=== PATIENT | female | born 1945 | race Caucasian/White ===

== ENCOUNTER 2020-03-07 14:55 | Inpatient (IN) | payer OTHER ==
[~2020-03-07] VITALS: Ht 152.4 cm; Wt 38.6 kg
--- NOTE | 2020-03-07 15:14 | NUR ---
[facility] [phone]
--- NOTE | 2020-03-07 15:14 | NUR ---
AIDAN XAVIER 83 [facility]ing personnel did not feel comfortable transporting her back home/unable to care for self/no family, patient c/o dizziness, to ER bed 9, hooked to monitor, changed to hosp gown, warm blanket provided, Dr Alegria at bedside.
[2020-03-07] MEDS ORDERED: MECLIZINE HCL 25 MG TABLET ONE (15:21)
[2020-03-07] MEDS ORDERED: ONDANSETRON HCL/PF 4 MG/2 ML VIAL ONE (15:21)
[2020-03-07] MEDS ORDERED: IV NS 0.9% 1,000 ML BAG IV ONE (15:30)
[2020-03-07] MEDS ORDERED: ONDANSETRON HCL/PF 4 MG/2 ML VIAL IVP ONE (15:30)
[2020-03-07] MEDS ORDERED: MECLIZINE HCL 12.5 MG TABLET PO ONE (15:30)
[2020-03-07 15:31] LABS: BASOPHILS # (AUTO) 0.1 /CMM (0.0-0.2); BASOPHILS % (AUTO) 0.8 % (0.0-2.0); EOSINOPHILS % (AUTO) 0.1 % (0.0-6.0); HEMATOCRIT 41 % (33-45); HEMOGLOBIN 13.4 g/dL (11.5-14.8); LYMPHOCYTES # (AUTO) 0.9 /CMM (0.8-4.8); LYMPHOCYTES % (AUTO) 12.3 % (20.0-44.0); MEAN CORPUSCULAR HGB CONC 33 g/dl (31.0-36.0); MEAN CORPUSCULAR VOLUME 101 fL (82-100); MONOCYTES # (AUTO) 0.6 /CMM (0.1-1.30); MONOCYTES % (AUTO) 8.3 % (2.0-12.0); NEUTROPHILS # (AUTO) 5.7 /CMM (1.8-8.9); NEUTROPHILS % (AUTO) 78.5 % (43.0-81.0); PLATELET COUNT (AUTO) 146 /CMM (150-450); RED BLOOD CELL COUNT(AUTO) 4.06 MIL/uL (4.0-5.2); WHITE BLOOD COUNT (AUTO) 7.3 K/uL (4.3-11.0)
[2020-03-07 15:42] LABS: CALCIUM, SERUM 8.4 mg/dL (8.5-10.1); CARBON DIOXIDE 30 mmol/L (21-32); CHLORIDE 86 mmol/L (98-107); GLUCOSE 100 mg/dL (74-106); POTASSIUM 3.7 mmol/L (3.5-5.1); SODIUM SERUM 131 mmol/L (136-145); UREA NITROGEN, BLOOD 17 mg/dL (7-18)
[2020-03-07 15:48] LABS: ALANINE AMINOTRANSFERASE 23 U/L (12-78); ALBUMIN 3.7 g/dL (3.4-5.0); ALKALINE PHOSPHATASE 89 U/L (46-116); ASPARTATE AMINOTRANSFERASE 55 U/L (15-37); BILIRUBIN,DIRECT 0.4 mg/dL (0.0-0.2); BILIRUBIN,TOTAL 1.4 mg/dL (0.2-1.0); TOTAL PROTEIN, SERUM 9.9 g/dL (6.4-8.2)
--- NOTE | 2020-03-07 16:25 | NUR ---
FAXED CLINICALS OVER TO [facility]
--- NOTE | 2020-03-07 17:03 | NUR ---
SPOKE WITH CHRISTINE ALEXANDRA FROM [facility]. THEY RECIEVED THE CLINICALS AND ARE ACTIVELY LOOKING FOR SNF PLACEMENT. WILL CALL BACK WITH DETAILS ONCE AVAILABLE.
--- NOTE | 2020-03-07 17:14 | NUR ---
PATIENT IN BED AWAKE, HOOKED TO MONITOR, WILL CONTINUE TO MONITOR ACCORDINGLY
--- NOTE | 2020-03-07 17:41 | NUR ---
RECIEVED A CALL BACK FROM NASRIN KING FROM [facility]. CALLED ASKING IF WE HAVE A RAPID COVID TEST AND STATED WE HAVE A 24-72 HOUR TURN AROUND. WILL SEE IF SHE CAN GET AUTHORIZATION FOR ADMISSION AT [facility]. WILL CALL BACK WITH DETAILS.
--- NOTE | 2020-03-07 18:15 | NUR ---
WAITING FOR DR FRANK TO CALL DR SMITH
--- NOTE | 2020-03-07 18:18 | NUR ---
PATIENT IN BED ASLEEP, EASILY AROUSED BY VOICE, HOOKED TO MONITOR, WILL CONTINUE TO MONITOR ACCORDINGLY
--- NOTE | 2020-03-07 18:58 | NUR ---
PATIENT IN BED ASLEEP, EASILY AROUSED BY VOICE, HOOKED TO MONITOR, WILL CONTINUE TO MONITOR ACCORDINGLY
--- NOTE | 2020-03-07 19:04 | NUR ---
JUST FAXED JUANITO ENRIQUEZ TO [facility] TO SEE IF THAT IS SUFFICIENT FOR ADMISSION OR TRANSPORT TO HOSPITAL OR SNF. WILL CALL BACK AFTER WITH RESULTS.
--- NOTE | 2020-03-07 19:16 | NUR ---
AWAITING FOR CALL, HAD DIALYSIS TODAY.
--- NOTE | 2020-03-07 19:35 | NUR ---
Patient is resting comfortably in bed. Easily aroused. VSS.
--- NOTE | 2020-03-07 20:52 | NUR ---
SPOKE WITH [employer] SOLUTIONS ENGINEER, [facility] DENIED PT. POSSIBLE AUTH TO ADMIT PT HERE. WILL FOLLOW UP
--- NOTE | 2020-03-07 21:50 | NUR ---
PER BOARD MIXER TENDER FILIBERTO, AUTH TO ADMIT PT HERE
--- NOTE | 2020-03-07 21:55 | NUR ---
DR. SMITH ON THE PHONE WITH DR. ROB
--- NOTE | 2020-03-07 22:23 | NUR ---
Patient is resting comfortably in bed. Easily aroused. VSS.
[2020-03-07] MEDS ORDERED: ACETAMINOPHEN 650 MG/20.3 ML UDC PO PRN ×2 (22:30→23:15)
[2020-03-07] MEDS ORDERED: CLONIDINE HCL 0.1 MG TABLET PO PRN ×2 (22:30→23:15)
--- NOTE | 2020-03-07 22:39 | NUR ---
BED 312-2
--- NOTE | 2020-03-07 22:58 | NUR ---
REPORT GIVEN TO [place] FOR RANCHO
--- NOTE | 2020-03-07 23:07 | NUR ---
Benjamín kohler in [facility] - 03/07/20 at 2308 by VERAOR PT TRANSFERED TO [facility].
[2020-03-07 23:30] VITALS: BP 115/66
--- NOTE | 2020-03-07 23:30 | NUR ---
ADMITTED PATIENT FROM ED DUE TO WEAKNESS, FROM HD CENTER, PATIENT ALERT AND ORIENTED X3, ROOM AIR, NO COMPLAIN OF PAIN, RCW HD CATH SECURED WITH DRESSING, ANURIC PER PT, BM X1, LEFT BUTTOCK REDNESS, PHOTO TAKEN, EMACIATED, MULTIPLE OLD SCARS ON BLE, NO EDEMA, GENERALIZED WEAKNESS, EDUCATED ON SAFETY PRECAUTIONS, ORIENTED TO ROOM AND USE OF CALL LIGHT.
--- NOTE | 2020-03-08 | NUR ---
NO ADMITTING DX YET FROM DR. ROB, NO DIET ORDER YET
[2020-03-08 00:30] VITALS: BP 115/66
[2020-03-08] MEDS ORDERED: *INSULIN REGULAR(HUMULIN R)HUM 100 UNIT/ML VIAL SQ PRN (06:30)
[2020-03-08] MEDS ORDERED: DEXTROSE 50%-WATER 50 ML DISP.SYRIN IV PRN (06:30)
[2020-03-08] MEDS: BLOOD SUGAR DIAGNOSTIC 1 EACH STRIP VI SCH ×4 (06:33→22:28)
[2020-03-08] MEDS: INSULIN REGULAR, HUMAN 100 UNIT/ML 3 ML VIAL SQ PRN ×2 (06:34→17:30)
--- NOTE | 2020-03-08 06:49 | NUR ---
RN NOTES ALERT AND AWAKE, STABLE ON ROOM AIR, NO COMPLAIN OF PAIN, DR. ROB GAVE ORDERS OF ACCUCHECK AND DX OF RENAL FAILURE, PT, OT, WOUND CONSULT, CASE MANAGEMENT CONSULT FOR PLACEMENT
[2020-03-08 08:00] VITALS: BP 97/51
[2020-03-08] MEDS ORDERED: IV NS 0.9% 250 ML IV ONE (11:30)
[2020-03-08] MEDS ORDERED: NEPRO VAN 237 ML CAN PO PRN (13:00)
[2020-03-08 16:00] VITALS: BP 96/56
--- NOTE | 2020-03-08 18:00 | NUR ---
appetite poor case mgmt. working on snf placement.
--- NOTE | 2020-03-08 20:08 | NUR ---
MS/TELE/RN PATIENT IS AWAKE, ALERT, ORIENTED, COMFORTABLE, NO C/O PAIN, NO DISTRESS NOTED, CALL LIGHT IN REACH. FALL PRECAUTIONS IN PLACE, WILL MONITOR.
[2020-03-08 20:33] VITALS: BP 93/57
--- NOTE | 2020-03-09 00:49 | NUR ---
MS/TELE/RN PATIENT IS SLEEPING AT THIS TIME, APPEAR COMFORTABLE, NO SIGNS OF DISTRESS NOTED, CALL LIGHT IN REACH, WILL CONTINUE TO MONITOR.
--- NOTE | 2020-03-09 06:24 | NUR ---
MS/TELE/RN PATIENT IS AWAKE, COMFORTABLE, NO SIGNS OF DISTRESS NOTED, ALL NEEDS ATTENDED AT THIS TIME, WILL CONTINUE TO MONITOR.
[2020-03-09] MEDS: BLOOD SUGAR DIAGNOSTIC 1 EACH STRIP VI SCH ×4 (06:38→20:54)
[2020-03-09 07:24] LABS: CALCIUM, SERUM 7.4 mg/dL (8.5-10.1); CARBON DIOXIDE 30 mmol/L (21-32); CHLORIDE 90 mmol/L (98-107); CREATININE 6.3 mg/dL (0.6-1.3); GLUCOSE 82 mg/dL (74-106); MAGNESIUM 2.1 mg/dL (1.8-2.4); SODIUM SERUM 129 mmol/L (136-145); UREA NITROGEN, BLOOD 48 mg/dL (7-18)
[2020-03-09 07:32] LABS: POTASSIUM 4.6 mmol/L (3.5-5.1)
[2020-03-09 08:00] VITALS: BP 95/61
--- NOTE | 2020-03-09 08:00 | NUR ---
MS RN OPENING NOTES RECEIVED PATIENT IN BED, AWAKE, CONSCIOUS, COOPERATIVE, COHERENT, BREATHING AT ROOM AIR, NO SIGNS OF RESPIRATORY DISTRESS, RAC #20, RIGHT CHEST WALL PERMA CATH, SIDE RAILS UP.
[2020-03-09] MEDS: MIDODRINE HCL (5MG) 5 MG TABLET PO SCH ×3 (09:43→17:53)
[2020-03-09] MEDS: HEPARIN SODIUM, PORCINE 5000 UNITS/1 ML VIAL SQ SCH ×2 (09:45→20:31)
[2020-03-09] MEDS: INSULIN REGULAR, HUMAN 100 UNIT/ML 3 ML VIAL SQ PRN (12:00)
--- NOTE | 2020-03-09 18:56 | NUR ---
MS RN CLOSING NOTES ENDORSED PATIENT TO [employer] OPERATOR NURSE IN BED, AWAKE, CONSCIOUS, COOPERATIVE, COHERENT, BREATHING AT ROOM AIR, NO SIGNS OF RESPIRATORY DISTRESS NOTED, RIGHT CHEST WALL PERMA CATH, RAC #20 SL, HD DONE WITH ZERO OUTPUT WITH BP: 100/58. SIDE RAILS UP FOR SAFETY.
[2020-03-09 20:00] VITALS: BP 106/57
--- NOTE | 2020-03-09 20:00 | NUR ---
MS/RN OPENING NOTES RECEIVED PATIENT IN BED, AWAKE AND OPENS EYES ABLE TO RESPOND AND COOPERATIVE TO CARE, RESPIRATIONS EVEN AND UNLABORED, ON ROOM AIR, PATIENT RESTING IN BED AND PROVIDED SOME BLANKET SHE STATED SHE FEELS COLD. IN ON KEY PATENT. MALKA LOCKED. CALL LIGHTS WITHIN REACH, DINNER TRAY AT BED SIDE HALF PLATE OF FOOD WAS EATEN, ENCOURAGE SOME FLUIDS AND NOURISHMENTS. WILL MONITOR.
--- NOTE | 2020-03-09 21:40 | NUR ---
BS CHECK AT 115
--- NOTE | 2020-03-10 02:00 | NUR ---
MS/RN NOTES PATIENT ASSISTED TO BATHROOM WITH UNSTEADY GAIT AND ABLE TO VOID. pATIENT REPORTED RELIEF EVEN FOR A LITTLE AMOUNT OF URINE EMPTIED.SAT ON THE CHAIR FOR A LITTLE WHILE AND WENT TO BED WITH ASSISTANCE, OBSERVE LOOSE BUTTOCKS BUT UNABLE TO TAKE PICTURE AT THIS TIME. TO FOLLOW LATER REQUESTED BY PATIENT.
[2020-03-10] MEDS: BLOOD SUGAR DIAGNOSTIC 1 EACH STRIP VI SCH ×3 (06:15→17:07)
--- NOTE | 2020-03-10 06:41 | NUR ---
312-2 MS/RN CLOSING NOTES PATIENT ABLE TO SLEEP DURING THE NIGHT, ATTENDED TO ALL NEEDS, LEPT COMFORTABLE, IV SITE HEPLOCK PATENT. BED LOCKED, CALL LIGHTS WITHIN REACH.MONITORED FOR ANY CHAGES. WILL ENDORSE TO AM RN FOR RANCHO.
--- NOTE | 2020-03-10 07:39 | NUR ---
MS/RN Opening note Patient received from manager night. A/O X3, vital signs stable, denies any pain or discomfort at this time. Heplock flushing well, no signs of any infiltration. Call light within reach, side rails X3 in upright position, will continue to monitor and ensure safety.
[2020-03-10 08:00] VITALS: BP 96/55
[2020-03-10] MEDS: HEPARIN SODIUM, PORCINE 5000 UNITS/1 ML VIAL SQ SCH (08:47)
[2020-03-10] MEDS: MIDODRINE HCL (5MG) 5 MG TABLET PO SCH ×3 (08:47→17:06)
--- NOTE | 2020-03-10 09:40 | NUR ---
MS/RN S/B S/B OT Seen by OT - patient to be followed by OT for strengthening exercises.
--- NOTE | 2020-03-10 11:49 | NUR ---
MS/RN Blood sugar Blood sugar 128, no coverage needed.
--- NOTE | 2020-03-10 13:20 | NUR ---
MS/RN S/B Dr Paez Seen by Dr Paez - patient to be discharged to intermediate, waiting for placement to be arranged by [place] watch case polisher.
--- NOTE | 2020-03-10 15:24 | NUR ---
MS/building wrecker planning Received call from [facility] case repairer, patient to be evaluated for hospice, and then discharged to SNF.
[2020-03-10 16:00] VITALS: BP 110/63
--- NOTE | 2020-03-10 16:16 | NUR ---
MS/RN [facility] Call received from Marilou at [facility]. Patient to be discharged to facility once evaluated by hospice. -[facility] (portfolio administrator) -
[2020-03-10 17:06] VITALS: BP 110/63
--- NOTE | 2020-03-10 17:21 | NUR ---
MS/bench mover Hospice nurse at bedside to evaluate patient.
--- NOTE | 2020-03-10 18:33 | NUR ---
MS/RN End note Patient to be discharged this evening to board and care with hospice. All paperwork completed, heplock removed, awaiting transport. Will endore to central service technician.
--- NOTE | 2020-03-10 19:06 | NUR ---
MS/php website developer Patient discharged in stable condition. Heplock and name bands removed, all personal belongings with patient and signed for on belongings list. Copy of medical record, exit care and medication list given to transport EMT's.
== END 2020-03-10 19:15 | disposition hospice, home (50) | DRG 640 ==
LOC: ER 15:04 → MED 03-08 01:05
PROVIDERS: ADMIT Internal Medicine; ATTEND Internal Medicine
PROC: 5A1D70Z Performance of Urinary Filtration, Intermittent, Less than 6 Hours Per Day (ICD-10-PCS; principal; 2020-03-09)
DX: R62.7 Adult failure to thrive (principal); N18.6 End stage renal disease; E43 Unspecified severe protein-calorie malnutrition; E87.1 Hypo-osmolality and hyponatremia; I12.0 Hypertensive chronic kidney disease with stage 5 chronic kidney disease or end stage renal disease; Z68.1 Body mass index [BMI] 19.9 or less, adult; E11.22 Type 2 diabetes mellitus with diabetic chronic kidney disease; Z99.2 Dependence on renal dialysis; I95.89 Other hypotension; D64.9 Anemia, unspecified
CPT/HCPCS: 36415; 70450-TC; 71045-TC; 80048-TC; 80076-TC; 82962-TC; 83735-TC; 84484-TC; 85025-TC; 86706; 87040-TC; 87081-TC; 87340; 90935-TC; 97112-TC; 97530-TC; G0378; J1644; J1815; J2405; J7050; J8597